=== PATIENT | female | born 1965 | race Caucasian/White ===

== ENCOUNTER → 2021-10-25 | Outpatient (CLI) | payer OTHER ==
--- NOTE | 2021-10-25 17:03 | KCIC ---
EXAMINATION: XR HIP (WITH OR WITHOUT PELVIS) RIGHT 1 VIEW CLINICAL HISTORY: CHRONIC PAIN RIGHT HIP/PELVIS/GROIN AREA, NO TRAUMA. TECHNIQUE: XR HIP (WITH OR WITHOUT PELVIS) RIGHT 1 VIEW Number of Images/Views: 2 COMPARISON: None FINDINGS: Joint space alignment maintained in the right hip. Left hip unremarkable on limited evaluation. Pubic symphysis and SI joints maintained. Partially visualized lumbar degenerative changes. No acute fract ure. IMPRESSION: No acute osseous abnormality right hip. Electronically signed by: Jose Covarrubias DO (10/25/2021 5:01 PM) [id number]
== END ==
LOC: KCIC 15:15
PROVIDERS: ATTEND Physician Assistant Medical
DX: M25.551 Pain in right hip (principal); M47.816 Spondylosis without myelopathy or radiculopathy, lumbar region
CPT/HCPCS: 73501